=== PATIENT | male | born 1975 | race Caucasian/White ===

== ENCOUNTER 2019-03-04 19:22 | Observation (INO) | payer MEDICAID ==
[~2019-03-04] VITALS: Ht 177.8 cm; Wt 79.4 kg
[2019-03-04 19:40] VITALS: BP 133/71
[2019-03-04] MEDS ORDERED: HUMALOG100 UNIT/1 SUBQ (19:46)
[2019-03-04] MEDS ORDERED: LANTUS100 UNIT/M SUBQ (19:46)
[2019-03-04] MEDS ORDERED: NEURONTIN600 MG PO (19:47)
[2019-03-04] MEDS ORDERED: DULCOLAX5 MG PO (19:47)
[2019-03-04] MEDS ORDERED: XIFAXAN550 M1 PO (19:47)
[2019-03-04] MEDS ORDERED: URSO TAB 250 M250 MG PO (19:48)
[2019-03-04 20:30] LABS: ABSOLUTE EOSINOPHILS 0.1 thou/uL (0.0-0.7); ABSOLUTE LYMPHOCYTES 0.6 thou/uL (0.8-5.3); ABSOLUTE MONOCYTES 0.3 thou/uL (0.0-1.2); ABSOLUTE NEUTROPHILS 1.2 thou/uL (1.6-8.1); BASOPHILS 0.3 %; EOSINOPHILS 3.5 %; HEMATOCRIT 43.8 % (42.0-52.0); HEMOGLOBIN 15.6 gm/dL (14.0-18.0); LYMPHOCYTES 28.7 %; MCH 34.6 pg (26.0-34.0); MCHC 35.6 g/dL (28.0-37.0); MONOCYTES 13.5 %; MPV 8.3 fl. (7.2-11.1); NUCLEATED RBCS 0 /100WBC; PLATELET COUNT* 64 thou/uL (150-400); RBC 4.52 mil/uL (4.50-6.00); RDW-CV 13.5 % (10.5-14.5); WBC 2.3 thou/uL (4.0-11.0)
[2019-03-04 20:39] LABS: URINE BILIRUBIN NEGATIVE (Negative); URINE BLOOD NEGATIVE (Negative); URINE CLARITY CLEAR; URINE COLOR YELLOW; URINE GLUCOSE-RANDOM 3+ (Negative); URINE KETONES NEGATIVE (Negative); URINE LEUKOCYTES-REFLEX NEGATIVE (Negative); URINE NITRITE-REFLEX NEGATIVE (Negative); URINE PROTEIN NEGATIVE (Negative); URINE SPECIFIC GRAVITY <= 1.005 (1.005-1.030)
[2019-03-04 20:56] LABS: ANION GAP 7 mmol/L (7-16); BUN 8 mg/dL (7-18); CALCIUM 9.2 mg/dL (8.5-10.1); CHLORIDE 101 mmol/L (98-107); CO2 26 mmol/L (21-32); POTASSIUM 4.3 mmol/L (3.5-5.1); SODIUM 134 mmol/L (136-145)
[2019-03-04 20:58] LABS: GLUCOSE 699 mg/dL (70-99)
[2019-03-04 21:05] LABS: ALBUMIN 3.3 g/dL (3.4-5.0); ALKALINE PHOSPHATASE 236 U/L (46-116); LIPASE 650 U/L (73-393); NT-PRO BRAIN NAT PEPTIDE 82 pg/mL (<300); SGOT 34 U/L (15-37); SGPT 55 U/L (30-65); TOTAL BILIRUBIN 3.1 mg/dL (<0.1-1.0); TOTAL PROTEIN 6.7 g/dL (6.4-8.2); TROPONIN-I LEVEL <0.06 ng/mL (<0.06)
[2019-03-04 23:00] VITALS: BP 143/80
[2019-03-04 23:15] VITALS: BP 136/76
[2019-03-04] MEDS ORDERED: LACTULOSE20 GM/30 M PO (23:48)
[2019-03-04] MEDS ORDERED: OXYCODONE HCL 55 MG PO (23:49)
[2019-03-04] MEDS ORDERED: JANUVIA50 MG PO (23:50)
[2019-03-05 05:23] LABS: HEMATOCRIT 37.1 % (42.0-52.0); MCH 34.9 pg (26.0-34.0); MCHC 36.5 g/dL (28.0-37.0); MCV 95.6 fL (80.0-100.0); MPV 8.1 fl. (7.2-11.1); RBC 3.88 mil/uL (4.50-6.00); RDW-CV 13.9 % (10.5-14.5)
[2019-03-05 05:42] LABS: HEMOGLOBIN 13.5 gm/dL (14.0-18.0)
[2019-03-05 05:44] LABS: WBC 1.7 thou/uL (4.0-11.0)
[2019-03-05 05:56] LABS: ALBUMIN 2.6 g/dL (3.4-5.0); CALCIUM 7.9 mg/dL (8.5-10.1); CREATININE 0.7 mg/dL (0.6-1.3); POTASSIUM 3.5 mmol/L (3.5-5.1); TOTAL PROTEIN 5.3 g/dL (6.4-8.2)
[2019-03-05 07:40] VITALS: BP 118/68
--- NOTE | 2019-03-05 11:21 | EKG ---
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
[2019-03-05 12:47] VITALS: BP 118/68
[2019-03-06 02:06] LABS: GLYCOHEMOGLOBIN (HGB A1C) 9.5 % (4.8-5.6)
== END 2019-03-05 13:15 | disposition home or self-care (01) ==
LOC: M.ERS 19:22 → M.ORTHSURG 21:39 → M.TBA-ER 21:39 → M.ORTHSURG 21:39
PROVIDERS: Nurse Practitioner Family; Personal Emergency Response Attendant; ADMIT Internal Medicine
DX: M79.641 Pain in right hand (principal); E11.65 Type 2 diabetes mellitus with hyperglycemia; E11.40 Type 2 diabetes mellitus with diabetic neuropathy, unspecified; M10.9 Gout, unspecified; K74.60 Unspecified cirrhosis of liver; D61.818 Other pancytopenia; R74.8 Abnormal levels of other serum enzymes; Z86.73 Personal history of transient ischemic attack (TIA), and cerebral infarction without residual deficits; Z88.5 Allergy status to narcotic agent; Z88.8 Allergy status to other drugs, medicaments and biological substances; Z79.4 Long term (current) use of insulin; Z79.899 Other long term (current) drug therapy; W19.XXXA Unspecified fall, initial encounter

== ENCOUNTER 2020-12-31 15:13 | Emergency (ER) | payer MEDICAID ==
[~2020-12-31] VITALS: Ht 180.3 cm; Wt 77.1 kg
[~2020-12-31 15:13] MED LIST: DULCOLAX5 MG PO; HUMALOG100 UNIT/1 SUBQ; JANUVIA50 MG PO; LACTULOSE20 GM/30 M PO; LANTUS100 UNIT/M SUBQ; NEURONTIN600 MG PO; OXYCODONE HCL 55 MG PO; URSO TAB 250 M250 MG PO; XIFAXAN550 M1 PO
[2020-12-31] MEDS ORDERED: NORCO 10-325 T1 EACH PO (15:23)
[2020-12-31 15:34] LABS: ABSOLUTE EOSINOPHILS 0.1 thou/uL (0.0-0.7); ABSOLUTE LYMPHOCYTES 0.9 thou/uL (0.8-5.3); ABSOLUTE MONOCYTES 0.3 thou/uL (0.0-1.2); ABSOLUTE NEUTROPHILS 1.3 thou/uL (1.6-8.1); BASOPHILS 0.3 %; EOSINOPHILS 4.7 %; HEMATOCRIT 30.5 % (42.0-52.0); HEMOGLOBIN 11.1 gm/dL (14.0-18.0); LYMPHOCYTES 33.3 %; MCH 33.4 pg (26.0-34.0); MCHC 36.3 g/dL (28.0-37.0); MCV 91.9 fL (80.0-100.0); MONOCYTES 12.6 %; MPV 6.5 fl. (7.2-11.1); NUCLEATED RBCS 0 /100WBC; PLATELET COUNT* 88 thou/uL (150-400); POLYS 49.1 %; RBC 3.32 mil/uL (4.50-6.00); WBC 2.7 thou/uL (4.0-11.0)
[2020-12-31 15:41] LABS: CREATININE 0.7 mg/dL (0.6-1.3); POTASSIUM 3.1 mmol/L (3.5-5.1)
[2020-12-31 15:46] LABS: ALBUMIN 2.2 g/dL (3.4-5.0); TOTAL BILIRUBIN 1.5 mg/dL (<0.1-1.0); TOTAL PROTEIN 6.2 g/dL (6.4-8.2)
[2020-12-31 15:47] LABS: URINE BILIRUBIN NEGATIVE (Negative); URINE BLOOD 3+ (Negative); URINE COLOR YELLOW; URINE GLUCOSE-RANDOM NEGATIVE (Negative); URINE KETONES NEGATIVE (Negative); URINE LEUKOCYTES-REFLEX NEGATIVE (Negative); URINE NITRITE-REFLEX NEGATIVE (Negative); URINE PROTEIN 1+ (Negative); URINE SPECIFIC GRAVITY 1.025 (1.005-1.030)
[2020-12-31 15:57] LABS: URINE CLARITY HAZY
[2020-12-31 16:08] LABS: SQUAMOUS 0-3 Few /LPF (0-3); URINE RBC 3-10 Few /HPF (0-2); URINE WBC-REFLEX 0-5 Rare /HPF (0-5)
[2020-12-31 16:09] LABS: BACTERIA-REFLEX None Seen /HPF (None Seen); CASTS None Seen /LPF (None Seen); CRYSTALS None Seen /LPF (None Seen); MUCUS 0-3 Light strn/LPF (None Seen)
[2020-12-31 18:55] VITALS: BP 156/79
--- NOTE | 2021-01-01 10:27 | EKG ---
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: [place] : 1975 Requested By: Braden Gomes Order Number: [id number] MD: Neftali Pham Measurements Intervals [place] Rate: 85 P: 39 [place]: 139 QRS: 17 QRSD: 82 T: -27 QT: 463 QTc: 551 Interpretive Statements Sinus rhythm Borderline T abnormalities, lateral leads Prolonged QT interval Compared to ECG 03/04/2019 20:25:40 T-wave abnormality now present Prolonged QT interval now present Electronically Signed On 01-01-2021 10:27:22 CDT by Neftali Pham [email or web address] <ELECTRONICALLY SIGNED> By: Neftali Pham MD, [facility] 01/01/21 1027 1523 1523 Neftali Pham MD, [facility] /EPI
== END 2020-12-31 18:56 | disposition home or self-care (01) ==
LOC: M.ERS 15:13
PROVIDERS: Emergency Medicine Emergency Medical Services
DX: E11.649 Type 2 diabetes mellitus with hypoglycemia without coma (principal); E11.40 Type 2 diabetes mellitus with diabetic neuropathy, unspecified; Z86.73 Personal history of transient ischemic attack (TIA), and cerebral infarction without residual deficits; Z88.5 Allergy status to narcotic agent; Z88.8 Allergy status to other drugs, medicaments and biological substances; Z79.4 Long term (current) use of insulin